=== PATIENT | male | born 1965 | race Caucasian/White ===

== ENCOUNTER → 2019-09-06 | Outpatient (CLI) | payer BC | END | disposition home or self-care (01) | LOC: SHCH 10:06 | PROVIDERS: ATTEND Internal Medicine Cardiovascular Disease | DX: I51.7 Cardiomegaly (principal) | CPT/HCPCS: 93306; 93356 ==

== ENCOUNTER 2019-09-26 05:46 | Day surgery (SDC) | payer BC ==
[2019-09-24 13:09] LABS: APPEARANCE,URINE Clear (CLEAR); BASOPHILS % (AUTO) 0.3 % (0.0-5.0); BILIRUBIN,URINE Negative (NEGATIVE); COLOR,URINE Yellow (YELLOW); GLUCOSE, URINE (UA) Negative (NEGATIVE); HEMATOCRIT 45.7 % (42-54); KETONES,URINE Negative (NEGATIVE); LEUKOCYTE ESTERASE ,URINE Negative (NEGATIVE); LYMPHOCYTES % (AUTO) 25.7 % (21.0-51.0); MEAN CORPUSCULAR HEMOGLOBIN 30.8 pg (27.0-33.0); MEAN CORPUSCULAR HGB CONC 34.1 g/dL (32.0-36.0); MEAN CORPUSCULAR VOLUME 90.1 fL (79-99); MONOCYTES % (AUTO) 10.7 % (3.0-13.0); NEUTROPHILS % (AUTO) 61.9 % (40.0-77.0); NITRATE,URINE Negative (NEGATIVE); OCCULT BLOOD,URINE Negative (NEGATIVE); PH,URINE 5.5 (5.0-8.0); PLATELET COUNT (AUTO) 247 K/uL (130-400); PROTEIN,URINE Negative (NEGATIVE); RED BLOOD CELL COUNT(AUTO) 5.07 MIL/uL (4.50-6.20); RED CELL DISTRIBUTION WIDTH 13.6 % (11.0-15.5); UROBILINOGEN,URINE 0.2 mg/dL (0.2-1.0); WHITE BLOOD COUNT (AUTO) 7.4 K/uL (4.8-10.8)
[2019-09-24 13:21] LABS: POTASSIUM 3.9 mmol/L (3.5-5.1)
[2019-09-24 13:26] LABS: INR 0.99 (0.85-1.15); PARTIAL THROMBOPLASTIN TIME 26.7 SEC (26.3-35.5); PROTHROMBIN TIME 10.4 SEC (9.6-11.6)
[2019-09-24 13:27] VITALS: BP 111/65
[2019-09-26] VITALS (11 sets, daily range): BP systolic 102–118; BP diastolic 53–74
[~2019-09-26] VITALS: Ht 193 cm; Wt 119.7 kg
[~2019-09-26 05:46] MED LIST: ASPI-555 PO; KRIL500C PO; MULT-1258 PO; OMEP20TA25 PO
[2019-09-26] MEDS ORDERED: BIVALIRUDIN 250 MG/VIAL IV ONE (07:10)
[2019-09-26] MEDS ORDERED: NITROGLYCERIN 2 MG/VIAL VIAL IV ONE (07:11)
[2019-09-26] MEDS ORDERED: HEPARIN SODIUM 1000UNIT/ML 10ML VIAL ONE (07:11)
[2019-09-26] MEDS ORDERED: FENTANYL CITRATE PF 50 MCG/1 ML 2ML VIAL ONE (07:11)
[2019-09-26] MEDS ORDERED: IOHEXOL 350 MG/ML 100ML INFUS..BTL IV ONE (07:11)
[2019-09-26] MEDS ORDERED: IOHEXOL-350 50ML VIAL IV ONE ×2 (07:11→08:47)
[2019-09-26] MEDS ORDERED: MIDAZOLAM HCL 1 MG/ML 2ML VIAL ONE (07:11)
[2019-09-26] MEDS ORDERED: LIDOCAINE HCL 2% 20ML ONE (07:12)
[2019-09-26] MEDS ORDERED: SODIUM BICARB 50MEQ 50ML VIAL ONE (07:13)
[2019-09-26] MEDS ORDERED: NICARDIPINE HCL 25 MG/10 ML ML IV ONE (07:21)
[2019-09-26] MEDS ORDERED: SODIUM CHLORIDE 0.9% 1000ML 1,000 ML IV SCH (08:00)
--- NOTE | 2019-09-26 09:25 | NUR ---
POST CATH PT BACK FROM [employer] [facility] VIA BED. REPORT RECEIVED FROM ABNER BOUDREAUX. PT IN NO DISTRESS. RAILS UP X4, CALL LIGHT WITHIN REACH AND BED IN LOWEST POSITION
--- NOTE | 2019-09-26 10:40 | NUR ---
REPORT GIVEN TO KATT NDIAYE RN
== END 2019-09-26 14:00 | disposition home or self-care (01) ==
LOC: DAH 05:46
PROVIDERS: ATTEND Internal Medicine Cardiovascular Disease
DX: R07.9 Chest pain, unspecified (principal); R94.39 Abnormal result of other cardiovascular function study; R06.02 Shortness of breath; I42.9 Cardiomyopathy, unspecified; I25.2 Old myocardial infarction; E78.5 Hyperlipidemia, unspecified; E11.9 Type 2 diabetes mellitus without complications; Z98.890 Other specified postprocedural states; Z95.5 Presence of coronary angioplasty implant and graft; Z79.82 Long term (current) use of aspirin; Z79.899 Other long term (current) drug therapy
CPT/HCPCS: 36415; 71045; 80048; 81003; 82948; 85025; 85610; 85730; 93005; 93460; 99156; 99157; A4215; A4216; A4221; A4222; A4223 ×3; A4606; A4663; C1760; C1894 ×4; J1644; J2250; J3010; J3490 ×3; J7030; Q9965; Q9967 ×2; J0583